=== PATIENT | female | born 1990 | race Caucasian/White ===

== ENCOUNTER 2017-10-17 15:30 | Outpatient (RCR) | payer MEDICAID ==
--- NOTE | 2017-10-06 17:08 | PT INITIAL EVALUATION ---
MEDICAL DIAGNOSIS: Hand Numbness TREATMENT DIAGNOSIS: Hand Numbness, Cervical Dysfunction DATE OF ONSET: 09/05/17 SUBJECTIVE: Pt is a 27 year old female presenting to physical therapy following a 1 month long progressive onset of B UE numbness, tingling and pain. Pt is 35 weeks and is due on November 12, 2017. Pt reports that the numbness started out as neck pain with occasional headaches and progressed initially into the L UE, but is now in both UE affecting digits 1-4. Symptoms were initially only present when sleeping and currently sleeping increases symptoms. Pt rates pain and symptoms currently as a 5/10 with only numbness but occasionally she will have sharp needle pain in the medial upper arms B. Pt denies any neck pain or headaches currently, but occasionally will have pain shooting into L low back with undermined neck movements. Symptoms are decreased with shoulder depression and relaxation, but never goes completely away. REHAB PROBLEM LIST: Increased Pain Decreased ROM Decreased Strength Decreased Function Decreased ADL's Decreased Mobility PREVIOUS MEDICAL HISTORY: See EMR OCCUPATION: Office work at [employer] OBJECTIVE: Posture: Pt has B elevated shoulders L>R with significant forward head and rounded shoulders. ROM: Cervical ROM: flexion: without pain and full, ext: pain in L shoulder and full, L SB: full without pain, R SB: minimal restrictions with L shoulder pain , R rotation: full without pain, L rotation: full with stretch on L shoulder. Shoulder ROM: flexion: full without pain B, abd: tight on L side but full B with significant L shoulder elevation, ER: B full with L side tightness, IR : full B without pain Strength: Pt is unable to form a fist in B hands secondary to stiffness and decreased strength. Palpation: Pt has no tenderness to palpation of cervical spine. Sensation: Pt reports numbness and tingling in digits 1-5 B Special Tests: Archie Cervical Screen: repeated ext: decreased tingling and numbness in R hand with increased music supervisor formation, repeated flexion: no change in numbness with shooting pain into L mid back, retraction: increased pain in neck with radiation to head, L SB: no change in symptoms, R SB: increased tingling in hands. ASSESSMENT: Pt shows signs and symptoms consistent with cervical dysfunction and neurological impingement as described in the impairments above. Physical therapy is indicated to correct these deficits as well as improve pt functional ability to perform ADL's. Short Term Goals In 3 weeks pt will have no symptoms of numbness or tingling in B UE centralizing pain the the cervical spine only for increased function with ADL' s. In 6 weeks pt will report no neck pain or episodes of numbness and tingling in B UE for increased function with ADL's. In 6 weeks pt will have full shoulder ROM without onset of pain for increased function with ADL's. Patient's Goals Decrease numbness in hands. PLAN: Patient to be seen for Manual Therapy/STM/MET Strengthening/condition Ice/Heat Range of Motion Spinal Stabilization Ultrasound Stretching Iontophoresis Neuromuscular Re-ed Closed Chain Program Electrical Stim Posture/Body mechanics Biofeedback Home Exercise Program Mech./Manual Traction Therapeutic Activities 3x/Week for 6 Weeks If you have any questions, comments, or concerns about this report or plan, please contact me at . Thank you, Talita Leung, PT, DPT, CLT LESLI
[~2017-10-17 15:30] MED LIST: IBUP-1455 PO; LOR7.5/325 PO; METO-733 PO; METR-1 PO; NO RTN MEDS
--- NOTE | 2017-10-21 18:26 | PT PLAN OF CARE ---
Physician: Fredy Falk MD Patient is being seen: 2-3x/Week Therapist: Talita Leung, PT, DPT, CLT Medical Diagnosis: Hand Numbness Treatment Diagnosis: Hand Numbness, Cervical Dysfunction Date of Onset: 09/05/17 Date of Initial Evaluation: 10/06/17 Date patient was last seen: 10/17/17 Number of treatments: 2 Number of cancellations/No shows: 2 INTERVENTIONS: Manual Therapy/STM/MET Strengthening/condition Ice/Heat Range of Motion Spinal Stabilization Ultrasound Stretching Iontophoresis Neuromuscular Re-ed Closed Chain Program Electrical Stim Posture/Body mechanics Biofeedback Home Exercise Program Mech./Manual Traction Therapeutic Activities GOALS: In 3 weeks pt will have no symptoms of numbness or tingling in B UE centralizing pain the the cervical spine only for increased function with ADL' s. In Progress In 6 weeks pt will report no neck pain or episodes of numbness and tingling in B UE for increased function with ADL's. In Progress In 6 weeks pt will have full shoulder ROM without onset of pain for increased function with ADL's. In Progress PATIENT'S GOAL: Decrease numbness in hands. Status of Patient's Goals: In Progress Patient Compliance: Fair Prognosis: Good Reasons for discharge from therapy: Sindhu is to discharge from physical therapy at this time secondary to pt inability to transport to treatment secondary to poor road conditions and pt residence in [place], [place]. At the time of discharge pt right UE had decreased numbness at 5/10 full arm. L UE fingers remained at 10/10, with pt reported feeling coming back in the rest of the arm. Pt tolerated exercises well with no increased pain and improved mobility. Pt is to continue PT treatment in [place], [place] for continued progress towards her functional goals as well as continue with her HEP. Posture: Pt has B elevated shoulders L>R with significant forward head and rounded shoulders. ROM: Cervical ROM: flexion: without pain and full, ext: pain in L shoulder and full, L SB: full without pain, R SB: minimal restrictions with L shoulder pain , R rotation: full without pain, L rotation: full with stretch on L shoulder. Shoulder ROM: flexion: full without pain B, abd: tight on L side but full B with significant L shoulder elevation, ER: B full with L side tightness, IR : full B without pain Strength: Pt is unable to form a fist in B hands secondary to stiffness and decreased strength. Palpation: Pt has no tenderness to palpation of cervical spine. Special Tests: Archie Cervical Screen: repeated ext: decreased tingling and numbness in R hand with increased jump roll operator formation, repeated flexion: no change in numbness with shooting pain into L mid back, retraction: increased pain in neck with radiation to head, L SB: no change in symptoms, R SB: increased tingling in hands. If you have any questions or concerns, please feel free to contact me at . Thank you, Talita Leung, PT, DPT, CLT MTDD
[2017-11-09] MEDS ORDERED: CALC-521 PO (22:26)
[2017-11-10] MEDS ORDERED: OXYC-373 PO (22:08)
[2017-11-10] MEDS ORDERED: IBUP800T37 PO (22:08)
== END 2018-01-04 ==
LOC: PT 15:30
PROVIDERS: ATTEND Obstetrics & Gynecology
DX: R20.2 Paresthesia of skin (principal); M99.01 Segmental and somatic dysfunction of cervical region; Z33.1 Pregnant state, incidental
CPT/HCPCS: 97162

== ENCOUNTER 2017-11-09 18:45 | Inpatient (IN) | payer MEDICAID ==
[~2017-11-09] VITALS: Ht 157.5 cm; Wt 132.9 kg
[2017-11-09] MEDS ORDERED: OXYTOCIN 30 UNIT/NS 500 ML 500 ML IV PRN (18:58)
[2017-11-09] MEDS ORDERED: LR(*) 1000 ML BAG 1,000 ML IV PRN (18:58)
[2017-11-09] MEDS ORDERED: FAMOTIDINE(*) 20MG/50ML PREMIX 50 ML IVPB PRN (18:58)
[2017-11-09] MEDS ORDERED: ceFAZolin(*) 2GM/D5W 50ML 50 ML IVPB PRN (18:58)
[2017-11-09] MEDS ORDERED: DINOPROSTONE 10 MG INSERT PV ONE (19:00)
[2017-11-09] MEDS ORDERED: FLUSH 10 ML SYR IVP PRN (19:00)
[2017-11-09] MEDS ORDERED: LIDOCAINE 1% LOCAL 300 MG/30ML INJ PRN (19:00)
[2017-11-09] MEDS ORDERED: MISOPROSTOL 25 MCG CAP PV PRN (19:00)
[2017-11-09] MEDS ORDERED: LIDOCAINE/SOD BICARB 8.4% SYR SC PRN (19:00)
[2017-11-09] MEDS ORDERED: fentaNYL CITR 100 MCG/2 ML AMP IVP PRN (19:00)
[2017-11-09] MEDS ORDERED: METOCLOPRAMIDE 10 MG/2 ML SDV IVP PRN (19:00)
[2017-11-09] MEDS ORDERED: ZOLPIDEM TARTRATE 5 MG TAB PO PRN (19:00)
[2017-11-09] MEDS ORDERED: TERBUTALINE SULF 1 MG/ML VIAL SUBQ PRN (19:00)
[2017-11-09 21:00] LABS: PLATELET COUNT, AUTOMATED 195 K/uL (150-450)
[2017-11-09 22:00] VITALS: BP 134/86; Ht 157.5 cm; Wt 132.9 kg
[2017-11-09] MEDS ORDERED: FAMOTIDINE(*) 20MG/50ML PREMIX 50 ML IVPB ONE (22:00)
[2017-11-09] MEDS ORDERED: CALCIUM CARBONATE 500 MG CHEW PO PRN (22:00)
[2017-11-09] MEDS ORDERED: CALC-521 PO (22:26)
[2017-11-10] VITALS (14 sets, daily range): BP systolic 87–114; BP diastolic 41–62
[2017-11-10] MEDS ORDERED: ACETAMINOPHEN 500 MG TAB PO PRN ×2 (00:55→22:30)
[2017-11-10] MEDS: ONDANSETRON 4 MG/2 ML VIAL IVP PRN ×2 (06:15→17:24)
[2017-11-10] MEDS ORDERED: PENICILLIN G 5 MILLUN/100 ML 100 ML IVPB ONE (07:05)
--- NOTE | 2017-11-10 07:19 | History & Physical ---
History of Present Illness Age of Patient: 27 : 1 Para or TPAL: 0 EDC per LMP: Nov 12, 2017 Estimated Gestational Age: 39.5 Chief Complaint Induction of Labor History of Present Illness Pt is a 27 y/o @ 39-5/7 weeks gestation who presents to L&D for a scheduled IOL. Pt denies any complaints. Good movement. No vaginal bleeding or loss of amniotic fluid. Feels the occasional cramp. History Patient's Blood Type: O Positive Rubella Status: Immune Group B Strep Screen: Positive Obstetrical History: Primigravid Past Medical History: PCOS Appendectomy 2008 Allergies: Coded Allergies: No Known Allergies (Verified Allergy, Mild, 02/22/09) Social History: +tobacco use, negative alcohol and recreational drug use. Med Rec Home Meds Reported Medications Calcium Carbonate (TUMS) 300 Mg Tab.chew, 300 MG PO, TAB.CHEW 11/09/17 Discontinued Reported Medications Acetaminophen/Hydrocodone (Lortab 7.5/325 Mg) 7.5 Mg/325 Mg Tab, 1 TAB PO Q3-4H Y, #20 1 Refill TAKE ONE TABLET EVERY 3-4 HOURS AND PRN NEEDED FOR PAIN 02/23/09 Metoclopramide Hcl (Reglan) 5 Mg Tablet, 5 MG PO TIDAC, #10 0 Refills tAKE ONE TABLET THREE TIMES A DAY BEFORE MEALS 02/23/09 Ibuprofen (Ibuprofen M) 200 Mg Tablet, 200 MG PO TID for 5 Days, 0 Refills TAKE TWO TABLETS WITH FOOD THREE TIMES A DAY FOR FIVE DAYS 02/23/09 [No Rtn Meds] No Conflict Check, 0 Refills 02/22/09 Discontinued Scripts Metronidazole (FLAGYL) 500 Mg Tablet, 500 MG PO BID for 7 Days, #14 TAB Prov:LARRY CASTILLO 05/16/17 Review of Systems All Systems Reviewed/Normal: Yes, Except as Noted Constitutional: No Fever, No Weight Loss, No Weight Gain, No Chills, No Night Sweats, No Other Neurological: No Syncope, No Confusion, No Weakness, No Dizziness, No Slurred Speech, No Other Eyes: No Vision Change, No Loss of Vision, No Photophobia, No Other ENT: No Hearing Loss, No Sinus Congestion, No Sore Throat, No Ear Ache, No Tinnitus, No Other Cardiovascular: No Chest Pain, No Palpitations, No Orthostatic Hypotension, No Other Respiratory: No Shortness of Breath, No Cough, No Wheezing, No Other Gastrointestinal: No Nausea, No Vomiting, No Diarrhea, No Dysphagia, No Constipation, No Early Satiety, No Hematemesis, No Hematochezia, No Melena, No Abdominal Pain, No Other Genitourinary: No Dysuria, No Hematuria, No Urinary Incontinence, No Other Musculoskeletal: No Pain, No Sprain, No Strain, No Impaired Mobility, No Other Psychiatric: No Depression, No Anxiety, No Other Exam General Exam Vital Signs Vital Signs Date Time Temp Pulse Resp B/P (MAP) Pulse Ox O2 Delivery O2 Flow Rate FiO2 11/09/17 22:00 98.4 106 18 134/86 (102) 94 Room Air General Apperance: Alert/Awake/No Acute Distress Neuro: No Gross deficits Eyes: Normal Extraocular Movement & Vison, PERRLA ENT: Normal Cardiovascular: Regular Rate and Rhythm Respiratory: No Respiratory Distress, Clear to Auscultation Abdomen: Soft, Non-Tender, Non-Distended, Gravid - Non-Tender : Normal Musculoskeletal: No Weakness/Pain Extremities: No Cyanosis,Clubbing or Edema Integumentary: Skin Intact without Lesions or Rash Psychological: Alert & Oriented X3, Appropriate Mood & Affect Cervical Dialation: 3 Cervical Effacement (%): 50 Cervical Consistency: Moderate Cervical Position: Mid Station: -2 Presentation: Vertex Uterine Contractions(Q min): 0 Fetus Feeling Movement?: Yes Heart Tones: 130 Heart Tone Variabilty: Moderate FHT Accelerations: Present FHT Decelerations: None FHT Category: I Medical Decision Making Data Points Result Diagram: 11/09/17203811/09/172038 Pre-Admit Course Medical Record Review: Yes VTE Prophylasis: Adult Deep Vein Thrombosis/Pulmonary: No Assessment and Plan COMPLAINT INSPECTOR Assessment: Stable COMPLAINT INSPECTOR Plan: Routine Labor/Induct Care Problems: (1) GBS (group B Streptococcus carrier), +RV culture, currently Assessment & Plan: Start PCN this AM and continue through delivery. (2) Elective induction of labor planned Assessment & Plan: Received Cervidil overnight. Will start Oxytocin and perform amniotomy after 1st dose of antibiotics have been infused. (3) 39 weeks gestation of (4) Obesity affecting in third trimester AURORA KAM DO Nov 10, 2017 07:19
[2017-11-10] MEDS ORDERED: LIDO/EPI 2% MPF 1:200,000 20ML EPI PRN (07:55)
[2017-11-10] MEDS ORDERED: BUPIVACAINE 0.25% MPF INJ EPI PRN (07:55)
[2017-11-10] MEDS ORDERED: ePHEDrine 25 MG/5 ML DISP.SYR IVP PRN (07:55)
[2017-11-10] MEDS ORDERED: fentaNYL CITR 100 MCG/2 ML AMP IT PRN (07:55)
[2017-11-10] MEDS ORDERED: BUPIVACAINE 0.5% INJ 30ML VIAL EPI PRN (07:55)
[2017-11-10] MEDS ORDERED: LIDOCAINE/PF 2% 200MG/10ML AMP 200 MG/10 ML AMPUL EPI PRN (07:55)
[2017-11-10] MEDS ORDERED: FENTANYL/ROPIVACAINE 100 ML BAG EPI PRN (07:55)
[2017-11-10] MEDS ORDERED: EPIDURAL KEYS XX PRN (08:00)
[2017-11-10] MEDS ORDERED: LR(*) 1000 ML BAG 1,000 ML IV PRN (08:27)
[2017-11-10] MEDS ORDERED: OXYTOCIN 30 UNIT/NS 500 ML 500 ML IV PRN ×2 (08:27→22:03)
[2017-11-10] MEDS ORDERED: DLR(*) 1000 ML BAG 1,000 ML IV SCH (08:27)
[2017-11-10] MEDS ORDERED: TERBUTALINE SULF 1 MG/ML VIAL SUBQ PRN (08:30)
--- NOTE | 2017-11-10 08:35 | Labor Progress Note ---
Labor Subjective Progress Notes Subjective feeling cramping Vaginal Discharge/Fluid: No Bloody Show, No Clear Fluid Labor Pain: Moderate Labor Objective Vital Signs Vital Signs Date Time Temp Pulse Resp B/P (MAP) Pulse Ox O2 Delivery O2 Flow Rate FiO2 11/09/17 22:00 98.4 106 18 134/86 (102) 94 Room Air Cervical Dialation: 3 (RN) Cervical Effacement (%): 80 Cervical Consistency: Soft Station: -2 Presentation: Vertex Uterine Contractions(Q min): 0 (NOT ICKING UP) Fetus Heart Tones: 140 Heart Tone Variabilty: Moderate FHT Category: I Other Result Diagram: 11/09/17203811/09/172038 Assessment and Plan Problems: (1) GBS (group B Streptococcus carrier), +RV culture, currently (2) Elective induction of labor planned Assessment & Plan: minimal change with cervadil, softened per report. start pitocin and monitor for change (3) 39 weeks gestation of (4) Obesity affecting in third trimester DAMASO BARRIENTOS MD Nov 10, 2017 08:34
--- NOTE | 2017-11-10 10:03 | Labor Progress Note ---
Labor Subjective Progress Notes Subjective PATIENT SAT UP FOR EPIDURAL AND STAFF REPORTED AUDIBLE DECELERATION IN HEART TONE, POSITION CHANGE OXYGEN AND FLUIDS FOR RESUSCITATION. DISCUSSED POSSIBLE NEED FOR DELIVERY BY C SECTION AND RISKS INVOLVED IF BABY UNIMPROVED Vaginal Discharge/Fluid: No Bloody Show Labor Pain: Mild Labor Objective Vital Signs Vital Signs Date Time Temp Pulse Resp B/P (MAP) Pulse Ox O2 Delivery O2 Flow Rate FiO2 11/09/17 22:00 98.4 106 18 134/86 (102) 94 Room Air Cervical Dialation: 3 Cervical Effacement (%): 90 Cervical Consistency: Soft Cervical Position: Anterior Station: -1 Presentation: Vertex Fetus Heart Tones: 180 Heart Tone Variabilty: Moderate FHT Category: II Other Result Diagram: 11/09/17203811/09/172038 Assessment and Plan Problems: (1) GBS (group B Streptococcus carrier), +RV culture, currently (2) Elective induction of labor planned (3) 39 weeks gestation of (4) Obesity affecting in third trimester (5) Active labor at term Assessment & Plan: CONCERN WITH HEART TONES, WILL GIVE 20 MINUTES TO RESOLVE OR IMPROVE AND REASSESS NEED FRO DELIVERY DAMASO BARRIENTOS MD Nov 10, 2017 10:03
--- NOTE | 2017-11-10 10:58 | Labor Progress Note ---
Labor Subjective Progress Notes Subjective PITOCIN HAS BEEN OFF, NOT FEELING REGULAR CONTRACTIONS Vaginal Discharge/Fluid: No Bloody Show Labor Pain: Mild Labor Objective Vital Signs Vital Signs Date Time Temp Pulse Resp B/P (MAP) Pulse Ox O2 Delivery O2 Flow Rate FiO2 11/09/17 22:00 98.4 106 18 134/86 (102) 94 Room Air Fetus Heart Tones: 150 Heart Tone Variabilty: Moderate FHT Accelerations: 15X15 FHT Category: I Other Result Diagram: 11/09/17203811/09/172038 Assessment and Plan Problems: (1) GBS (group B Streptococcus carrier), +RV culture, currently (2) Elective induction of labor planned (3) 39 weeks gestation of (4) Obesity affecting in third trimester (5) Active labor at term Assessment & Plan: WILL SEE IF ABLE TO TOLERATE CONTRACTIONS, IF ABLE WILL CONSIDER ANOTHER ATTEMPT AT EPIDURAL ANESTHESIA LIKELY IN OR IN CASE BRADYCARDIA RETURNS AND NEED FOR EMERGENT DELIVERY. DAMASO BARRIENTOS MD Nov 10, 2017 10:58
[2017-11-10] MEDS ORDERED: CITRIC ACID/SOD CITRATE 30 ML PO PRN (11:25)
--- NOTE | 2017-11-10 12:08 | Labor Progress Note ---
Labor Subjective Progress Notes Subjective FEELING CONTRACTIONS Vaginal Discharge/Fluid: No Bloody Show Labor Pain: Moderate Labor Objective Vital Signs Vital Signs Date Time Temp Pulse Resp B/P (MAP) Pulse Ox O2 Delivery O2 Flow Rate FiO2 11/09/17 22:00 98.4 106 18 134/86 (102) 94 Room Air Cervical Dialation: 3 Cervical Effacement (%): 90 Cervical Consistency: Soft Station: -1 Presentation: Vertex Uterine Contractions(Q min): 3 Uterine Contraction Strength: Moderate Fetus Heart Tones: 140 Heart Tone Variabilty: Moderate FHT Accelerations: 15X15 FHT Category: I Other Result Diagram: 11/09/17203811/09/172038 Assessment and Plan Problems: (1) GBS (group B Streptococcus carrier), +RV culture, currently (2) Elective induction of labor planned (3) 39 weeks gestation of (4) Obesity affecting in third trimester (5) Active labor at term Assessment & Plan: WILL TRY TO SEE IF ABLE TO GET EPIDURAL AND THEN AROM IF TOLERATES DAMASO BARRIENTOS MD Nov 10, 2017 12:08
[2017-11-10] MEDS: PENICILLIN G 2.5 MILLUN/100 ML 100 ML IVPB SCH ×2 (12:09→16:05)
--- NOTE | 2017-11-10 12:33 | Labor Progress Note ---
Labor Subjective Progress Notes Subjective UNABLE TO MONITOR TRACING WHILE SITTING UP FOR EPIDURAL Vaginal Discharge/Fluid: Dark Green Fluid Labor Pain: Moderate Labor Objective Vital Signs Vital Signs Date Time Temp Pulse Resp B/P (MAP) Pulse Ox O2 Delivery O2 Flow Rate FiO2 11/09/17 22:00 98.4 106 18 134/86 (102) 94 Room Air Cervical Dialation: 3 Cervical Effacement (%): 100 Cervical Consistency: Soft Cervical Position: Anterior Station: 0 Presentation: Vertex Uterine Contractions(Q min): 3 Uterine Contraction Strength: Strong Fetus Heart Tones: 140 Heart Tone Variabilty: Moderate FHT Accelerations: 15X15 FHT Category: I Other Result Diagram: 11/09/17203811/09/172038 Assessment and Plan Problems: (1) GBS (group B Streptococcus carrier), +RV culture, currently (2) Elective induction of labor planned (3) 39 weeks gestation of (4) Obesity affecting in third trimester (5) Active labor at term Assessment & Plan: AROM MECONIUM STAINED FLUID, FSE AND IUPC PLACED WILL TRY TO SEE IF TOLERATES SITTING FOR EPIDURAL AND MONITOR FOR CERVICAL CHANGE DAMASO BARRIENTOS MD Nov 10, 2017 12:33
[2017-11-10] MEDS ORDERED: NS(*) 0.9% 1000 ML BAG 1,000 ML ONE (12:40)
[2017-11-10] MEDS: NS(*) 0.9% 1000 ML BAG 1,000 ML PV PRN ×3 (13:10→18:08)
--- NOTE | 2017-11-10 13:13 | Labor Progress Note ---
Labor Subjective Progress Notes Subjective RECEIVED EPIDURAL Vaginal Discharge/Fluid: Green Tinged Fluid Labor Pain: Mild Labor Objective Vital Signs Vital Signs Date Time Temp Pulse Resp B/P (MAP) Pulse Ox O2 Delivery O2 Flow Rate FiO2 11/09/17 22:00 98.4 106 18 134/86 (102) 94 Room Air Cervical Dialation: 4 Cervical Effacement (%): 100 Station: 0 Presentation: Vertex Uterine Contractions(Q min): 4 Uterine Contraction Strength: Strong Fetus Heart Tones: 140 Heart Tone Variabilty: Moderate FHT Accelerations: 15X15 FHT Decelerations: Early FHT Category: II Other Result Diagram: 11/09/17203811/09/172038 Assessment and Plan Problems: (1) GBS (group B Streptococcus carrier), +RV culture, currently (2) Elective induction of labor planned (3) 39 weeks gestation of (4) Obesity affecting in third trimester (5) Active labor at term Assessment & Plan: IUPC REPLACED WILL AMNIOINFUSE FOR VARIABLE DECEL, LOST LARGE AMOUNT OF FLUID. WILL MONITOR FOR CERVICAL CHANGE DAMASO BARRIENTOS MD Nov 10, 2017 13:13
--- NOTE | 2017-11-10 15:50 | Anesthesia OB Pre-Anes Eval ---
History of Present Illness Anesthesia Start Date: Nov 10, 2017 Anesthesia Start Time: 09:20 OB Anesthesia Diagnosis: induction - elective Current Complication: obesity EDC: Nov 12, 2017 : 1 Para: 0 Result Diagram: 11/09/17203811/09/172038 Height (Inches): 62.00 Weight (Pounds): 293 BMI Calculated: 53.58 Past Medical History Medical History: obesity Surgical History: appendectomy (2008) Previous Anesthesia: general Attended Childbirth Classes?: No Hx Anesthesia Reactions: No Hx Family Anesthesia Reaction: No Current Medications: pitocin Home Meds Reported Medications Calcium Carbonate (TUMS) 300 Mg Tab.chew, 300 MG PO, TAB.CHEW 11/09/17 Discontinued Reported Medications Acetaminophen/Hydrocodone (Lortab 7.5/325 Mg) 7.5 Mg/325 Mg Tab, 1 TAB PO Q3-4H Y, #20 1 Refill TAKE ONE TABLET EVERY 3-4 HOURS AND PRN NEEDED FOR PAIN 02/23/09 Metoclopramide Hcl (Reglan) 5 Mg Tablet, 5 MG PO TIDAC, #10 0 Refills tAKE ONE TABLET THREE TIMES A DAY BEFORE MEALS 02/23/09 Ibuprofen (Ibuprofen M) 200 Mg Tablet, 200 MG PO TID for 5 Days, 0 Refills TAKE TWO TABLETS WITH FOOD THREE TIMES A DAY FOR FIVE DAYS 02/23/09 [No Rtn Meds] No Conflict Check, 0 Refills 02/22/09 Discontinued Scripts Metronidazole (FLAGYL) 500 Mg Tablet, 500 MG PO BID for 7 Days, #14 TAB Prov:JONATHANLARRY POWER BALLAST MACHINE OPERATOR 05/16/17 Allergies: Coded Allergies: No Known Allergies (Verified Allergy, Mild, 02/22/09) Anesthesia OB ROS Neurological: No migraines/headaches, No seizures, No neuropathy ENT: Denies Tooth caps, Denies Loose teeth, Denies Chipped teeth, Denies Dentures, Denies Bridges, Denies Retainers, Denies Veneers, Denies Implants, Denies Tongue ring, Other Pulmonary: No asthma, No smoker (pks/day/yrs) Airway Class: lll Cardiovascular ROS: edema (hands and feet) GI ROS: clear liquids Last Solids Date: Nov 09, 2017 Last Solids Time: 18:30 ROS: No Herpes, No STD(s), No Liver Disease, No Renal Disease Endocrine ROS: No diabetes, No gestational diabetes, No thyroid disorder Musculoskeletal ROS: No low back pain, No low back injury, No scoliosis, other (Mobility slow due to size) ASA Classification: 3, E Assessment and Plan Assessment Past Medical, Surgical, Family and Obstetric Histories reviewed. Please see ACOG chart. Discussed with pt., plans and procedure for epidural or CSE for pain management during labor and delivery. Thoroughly explained potential for C/Section and need for GA with ETT. Risks of each including possibility of unable to place block (due to her size), PDPHA and risk of aspiration/airway difficulties if GA required. Questions invited, none asked. RN attempting to Locate FHT with pt. sitting on with legs over side of bed. FHT appeared to be low, pt's position changed to left lateral with elevated HOB 30 degrees. FHT then found to be 180-190s. Call to Dr. Falk and plan to place epidural stopped until FHTs improve. RYANN TINAJERO CRNA Nov 10, 2017 15:50
--- NOTE | 2017-11-10 16:14 | Procedure Note ---
Anesthetic Placement Note Anesthesia Plan: CSE Permit for Anesthesia Signed: Yes Anesthesia Technique: Patient Sitting Anesthesia Prep: Chlorhexidine Interspace: L 3-4 Local Anesthetic: 1% Lidocaine Amount Local - cc's: 3 Anesthesia Needle: 17g Touhy/Schliff Anesthesia Attempts: 2 Loss of Resistance: Air Depth of LOS (cm): 8 Epidural Needle Placement: No CSF, No Blood, No Parasthesia Intrathecal Needle: 27 Gauge Pencan Cerebral Spinal Fluid: Yes, Clear Catheter Insertion (cm): 12 Catheter Type: Simons - Spring Wound Epidural Dressing: Tegaderm, Tape, Adhesive [place] Anesthesia Tray: Lot Number ([id number]), Expiration Date (2018-11-06), Reference Number ([id number]) Comment: Pt. assisted to slowly sit, then transferring legs over side of bed, and closely observing FHTs. Attempting to assist pt. to best possible position for epidural. IV Fentenyl 50 mcgs given to help pt. in tolerating contractions and maintaining position. Unable to feel any hip or spinous processes. Chlorhexidine prep x2. Local given. Unable to feel any bone with local needle. #17 g Touhy at ???L3-4 and unable to locate epidural space. Pt. repositioned with legs up on stool. Local repeated one level above, ??L2-3. Fair YEYO. Redirecting needle until epidural space located. Good CSF with intrathecal. Catheter threaded easily. Pt. changed to left lateral and taped securely. Dr. Falk present. Anesthesia Medications: Intrathecal Dose: mcg Fentanyl (5), mg Marcaine MPF (1.75), Time (1254) Epidural Test Dose: 1.5 Lido/Epi (1:200,000), Dose - mL (2), Negative Epidural Loading Dose: 0.2% Ropivicaine, With Fentanyl 2mcg/ml, Dose - ml (4), Time (1351) Epidural Infusion: 0.2% Ropivicaine, With Fentanyl 2mcg/ml, Start Time: (1352) Epidural Pump Setting: Bolus Dose - mL (4), Lockout - Minutes (20), Maintenance Rate - mL/hr (4), Maximum per Hour - mL (16) Complications: None Comment: Pt. became comfortable within 5 minutes of intrathecal. Mild itching noted. RYANN TINAJERO CRNA Nov 10, 2017 16:14
[2017-11-10] MEDS ORDERED: cefOXitin/DEX(*) 2GM/50ML PREM 50 ML IVPB PRN (16:20)
--- NOTE | 2017-11-10 16:22 | Anesthesia Progress Note ---
Progress/Maintenance Anesthesia Note Date: Nov 10, 2017 Anesthesia Note Time: 16:00 Pain Intensity: 1 Pump: On Pump Rate (ML/HR): 4 Sensory Level: T-12 Motor Level: Other (slow to love legs, but an move with requested) Dilatation: 5 Position: Left, Tilt Assessment and Plan Assessment Pt states she feels only "slight tightening" during contractions. Sleeping at intervals. RYANN TINAJERO CRNA Nov 10, 2017 16:22
--- NOTE | 2017-11-10 17:33 | Labor Progress Note ---
Labor Subjective Progress Notes Subjective comfortable with epidural Labor Pain: Comfortable Labor Objective Vital Signs Vital Signs Date Time Temp Pulse Resp B/P (MAP) Pulse Ox O2 Delivery O2 Flow Rate FiO2 11/09/17 22:00 98.4 106 18 134/86 (102) 94 Room Air Cervical Dialation: 6 Cervical Effacement (%): 100 Cervical Consistency: Soft Cervical Position: Anterior Station: 0 Presentation: Vertex Uterine Contractions(Q min): 4 Uterine Contraction Strength: Strong Fetus Heart Tones: 130 Heart Tone Variabilty: Moderate FHT Accelerations: 15X15 FHT Category: I Other Result Diagram: 11/09/17203811/09/172038 Assessment and Plan Problems: (1) GBS (group B Streptococcus carrier), +RV culture, currently (2) Elective induction of labor planned (3) 39 weeks gestation of (4) Obesity affecting in third trimester (5) Active labor at term Assessment & Plan: will continue to observe for cervical change. Contractions adequate DAMASO BARRIENTOS MD Nov 10, 2017 17:33
--- NOTE | 2017-11-10 19:03 | Anesthesia Progress Note ---
Progress/Maintenance Anesthesia Note Date: Nov 10, 2017 Anesthesia Note Time: 18:45 Pain Intensity: 4 Pump: On Pump Rate (ML/HR): 4 Sensory Level: T-12 Motor Level: Other (Able to move both but slowly) Dilatation: 7 Position: Left, Tilt Drug Bolus: 0.5% Marcaine (4 ml), Other (Fentenyl 35 mcgs) Assessment and Plan Assessment Pt. states she is having move abdominal pain with contractions. Bolus per pump at 1800 which pt. states did not help any. Manual bolus given and relief noted within 5-10 minutes. Pt. now does not notice contractions. RYANN TINAJERO CRNA Nov 10, 2017 19:03
[2017-11-10] MEDS ORDERED: NS(*) 0.9% 1000 ML BAG 1,000 ML PV PRN (19:22)
--- NOTE | 2017-11-10 20:18 | Labor Progress Note ---
Labor Subjective Progress Notes Subjective comfortable with epidural Labor Pain: Comfortable Labor Objective Vital Signs Vital Signs Date Time Temp Pulse Resp B/P (MAP) Pulse Ox O2 Delivery O2 Flow Rate FiO2 11/09/17 22:00 98.4 106 18 134/86 (102) 94 Room Air Cervical Dialation: 6 Cervical Effacement (%): 100 Station: 0 Presentation: Vertex Uterine Contractions(Q min): 3 Uterine Contraction Strength: Strong Fetus Heart Tones: 140 Heart Tone Variabilty: Moderate FHT Category: II Other Result Diagram: 11/09/17203811/09/172038 Assessment and Plan Problems: (1) GBS (group B Streptococcus carrier), +RV culture, currently (2) Elective induction of labor planned (3) 39 weeks gestation of (4) Obesity affecting in third trimester (5) Active labor at term Assessment & Plan: no progress despite adequate uterine contractions, will proceed with delivery by c section DAMASO BARRIENTOS MD Nov 10, 2017 20:18
[2017-11-10] MEDS ORDERED: OXYTOCIN 10 UNIT/ML SDV ONE ×2 (21:02→21:45)
[2017-11-10] MEDS ORDERED: ONDANSETRON 4 MG/2 ML VIAL ONE (21:02)
[2017-11-10] MEDS ORDERED: KETOROLAC 30 MG/ML VIAL ONE (21:02)
[2017-11-10] MEDS ORDERED: MORPHINE PF 5 MG/10 ML AMP ONE (21:02)
[2017-11-10] MEDS ORDERED: LIDO/EPI 2% MPF 1:200,000 20ML ONE (21:02)
[2017-11-10] MEDS ORDERED: PHENYLEPHRINE/NS/PF 0.4MG/10ML ONE ×2 (21:02→21:38)
[2017-11-10] MEDS ORDERED: fentaNYL CITR 100 MCG/2 ML AMP ONE (21:45)
[2017-11-10] MEDS ORDERED: FAMOTIDINE(*) 20MG/50ML PREMIX 50 ML IVPB PRN (22:03)
--- NOTE | 2017-11-10 22:03 | Post Operative Note ---
Operative Note - [facility]IE[facility] Operative Day Date: Nov 10, 2017 Time: 21:10 Physicians Surgeon: FLOYD Toy Designer: NEGIN Anesthesia: TANVI Diagnosis Pre-Op Diagnosis: IUP AT 39 5/7 MORBID OBESITY FTP Post-Op Diagnosis: SAME Procedure Findings: MALE APGARS 8, 9 WEGHT 4060 GMS 8# 15 OZ NORMAL UTERUS OVARIES AND TUBES 189171 Procedure(s): PLTCS Complications: 0 Fluids Fluids: 1500 CC LR IV Estimated Blood Loss: 750 CC Dictated Date OP Note Dictated: Nov 10, 2017 Time OP Note Dictated: 22:10 Copies to: DAMASO BARRIENTOS MD, JOHN MD Nov 10, 2017 22:03
[2017-11-10] MEDS ORDERED: ONDANSETRON 4 MG/2 ML VIAL IV PRN (22:05)
[2017-11-10] MEDS ORDERED: METOCLOPRAMIDE 10 MG/2 ML SDV IV PRN (22:05)
[2017-11-10] MEDS ORDERED: FLUSH 10 ML SYR IVP PRN (22:05)
[2017-11-10] MEDS ORDERED: LANOLIN OINT 7 GM TUBE TP PRN (22:05)
[2017-11-10] MEDS ORDERED: PROMETHAZINE 25 MG/ML 1 ML AMP IVP PRN (22:05)
[2017-11-10] MEDS ORDERED: IBUP800T37 PO (22:08)
[2017-11-10] MEDS ORDERED: OXYC-373 PO (22:08)
[2017-11-10] MEDS ORDERED: METHYLERGONOVINE MAL 0.2MG/ML ONE (22:09)
--- NOTE | 2017-11-10 22:11 | OB/GYN Discharge Summary ---
Discharge Summary Reason for Hosp/Final Diag: (1) GBS (group B Streptococcus carrier), +RV culture, currently Status: Resolved (2) Elective induction of labor planned Status: Resolved (3) 39 weeks gestation of Status: Resolved (4) Obesity affecting in third trimester Status: Resolved (5) Active labor at term Status: Resolved (6) care following delivery Hospital Course & Plan: PLTCS, on day 3, Pain controlled, Tolerating diet and activity. Baby . Normal lochia. Lates Vital Signs Vital Signs Date Time Temp Pulse Resp B/P (MAP) Pulse Ox O2 Delivery O2 Flow Rate FiO2 11/09/17 22:00 98.4 106 18 134/86 (102) 94 Room Air Weight (Pounds): 293 Result Diagram: 11/09/17203811/09/172038 Condition: Improved Discharge: Home, Self Intermediate Meds Active Scripts Oxycodone Hcl/Acetaminophen (OXYCODONE-ACETAMINOPHEN 5-325) 1 Each Tablet, 1-2 EACH PO Q4H Y for PAIN, #30 TAB 0 Refills TAKE 1-2 TABLET NEEDED FOR PAIN - NO CLOSER THAN EVERY 4 HOURS. Prov:DAMASO FALK MD 11/10/17 Ibuprofen (IBUPROFEN) 800 Mg Tablet, 1 TAB PO Q8H, #30 TAB 0 Refills Take with food every 8 hours. Prov:DAMASO FALK MD 11/10/17 Reported Medications Calcium Carbonate (TUMS) 300 Mg Tab.chew, 300 MG PO, TAB.CHEW 11/09/17 Discontinued Reported Medications Acetaminophen/Hydrocodone (Lortab 7.5/325 Mg) 7.5 Mg/325 Mg Tab, 1 TAB PO Q3-4H Y, #20 1 Refill TAKE ONE TABLET EVERY 3-4 HOURS AND PRN NEEDED FOR PAIN 02/23/09 Metoclopramide Hcl (Reglan) 5 Mg Tablet, 5 MG PO TIDAC, #10 0 Refills tAKE ONE TABLET THREE TIMES A DAY BEFORE MEALS 02/23/09 Ibuprofen (Ibuprofen M) 200 Mg Tablet, 200 MG PO TID for 5 Days, 0 Refills TAKE TWO TABLETS WITH FOOD THREE TIMES A DAY FOR FIVE DAYS 02/23/09 [No Rtn Meds] No Conflict Check, 0 Refills 02/22/09 Discontinued Scripts Metronidazole (FLAGYL) 500 Mg Tablet, 500 MG PO BID for 7 Days, #14 TAB Prov:LARRY CASTILLO ILIANA 05/16/17 Follow up with: Dr. Falk [phone] Follow up in: 6 wks PP or PO, 2 wks PO Discharge Diet: As Tolerates Discharge Activity: Pelvic Rest Copies to: DAMASO FALK MD, JOHN MD Nov 10, 2017 22:11
--- NOTE | 2017-11-10 22:41 | Anesthesia Progress Note ---
Progress/Maintenance Anesthesia Note Date: Nov 10, 2017 Anesthesia Note Time: 20:20 Pain Intensity: 0 Pump: Off Dilatation: 6 Assessment and Plan Assessment Plans changing to Level 2 C/Section. 2% Lidocaine with Epi given at 5 ml increments. To OR with total of 15 ml and level of T-6 RYANN TINAJERO CRNA Nov 10, 2017 22:41
--- NOTE | 2017-11-10 22:43 | Anesthesia Progress Note ---
Progress/Maintenance Anesthesia Note Date: Nov 10, 2017 Anesthesia Note Time: 22:15 Pain Intensity: 0 Motor Level: Other (moving feet) Assessment and Plan Assessment Pt. stable in PACU. Epidural catheter to remain in til am. Empty 1ml syringe attached and taped to abdomen. RNs aware of leaving catheter in place. Anesthesia Stop Day: Nov 10, 2017 Anesthesia Stop Time: 22:15 RYANN TINAJERO CRNA Nov 10, 2017 22:43
[2017-11-10] MEDS ORDERED: NALBUPHINE HCL 10 MG/ML AMP IV PRN (22:45)
[2017-11-10] MEDS ORDERED: diphenhydrAMINE 25 MG CAP PO PRN (22:45)
[2017-11-10] MEDS ORDERED: NALOXONE HCL 0.4 MG/ML VIAL IV PRN (22:45)
[2017-11-10] MEDS ORDERED: LR ONE (23:06)
[2017-11-11] VITALS (15 sets, daily range): BP systolic 78–113; BP diastolic 33–65
[2017-11-11] MEDS ORDERED: KETOROLAC 30 MG/ML VIAL IVP SCH
[2017-11-11] MEDS: cefOXitin/DEX(*) 1GM/50ML PREM 50 ML IVPB SCH ×4 (00:38→18:16)
[2017-11-11] MEDS: DLR(*) 1000 ML BAG 1,000 ML IV PRN (01:41)
[2017-11-11] MEDS: KETOROLAC 30 MG/ML VIAL IVP SCH ×3 (02:38→14:41)
[2017-11-11] MEDS ORDERED: PENICILLIN G 2.5 MILLUN/100 ML 100 ML IVPB SCH (03:30)
--- NOTE | 2017-11-11 04:08 | BRAGG C-SECTION ---
EVENT DATE: November 10, 2017 SURGEON: Fredy Falk MD ANESTHESIOLOGIST: Sakshi Zayas CRNA ANESTHESIA: Intrathecal MOTOR RUNNER: Reg Esquivel DO PREOPERATIVE DIAGNOSIS 1. Intrauterine at 39 and 5/7 weeks. 2. Morbid obesity. 3. Failure to progress. POSTOPERATIVE DIAGNOSIS 1. Intrauterine at 39 and 5/7 weeks. 2. Morbid obesity. 3. Failure to progress. PROCEDURE PERFORMED Primary low transverse section. COMPLICATIONS None. FLUIDS 1500 mL of lactated ringers IV. ESTIMATED BLOOD LOSS 750 mL. INDICATIONS The patient is 27-year-old female who was admitted for elective induction. She was given Cervidil and made minimal progress overnight. She was 3 cm. Pitocin was initiated, and cervix was -2 station. She desired an epidural. On the first attempt at an epidural when sitting up, heart tones dropped to 30 audibly per nurse's report. She was laid back down and position was changed. She was given oxygen and fluids, and heart tones were in the 180's to 190' s, but then resolved. After 30 to 45 minutes, Pitocin was restarted, and fetus was tolerating the contractions. At this point, an epidural was then placed by Sakshi Zayas CRNA, which was effective. Patient had been ruptured and noted to have meconium-stained fluid. An intrauterine pressure catheter and scalp electrode were placed. The scalp electrode was used for monitoring during the epidural.placement. Pitocin was increased to achieve an adequate labor pattern. Patient progressed to 6 cm, however, over 3 hours made no change in station or dilation, and after discussion of risks and alternatives , the patient agreed to proceed with primary C section. FINDINGS Male infant with Apgars 8 at one minute and 9 at five minutes. Weight was 4060 grams, or 8 pounds, 15 ounces. She had a normal-appearing uterus, ovaries and tubes. PROCEDURE After informed consent was obtained, the patient was taken to the operating room. The Garcia catheter had been placed in the labor and delivery suite. Intrathecal had been dosed appropriately. She was prepped and draped for a C section. A Pfannenstiel skin incision was made, carried through to the underlying layer of fascia with the Bovie. The skin incision had been made with a scalpel. The fascia was nicked in the midline and extended laterally with He scissors. The rectus fascia was dissected off the rectus muscles with both blunt and sharp dissection in the superior then inferior aspect of the incision. The rectus muscles were divided in the midline. The peritoneum was entered sharply. The peritoneal incision was extended superiorly then inferiorly with good visualization of the bladder. The bladder blade was placed , a bladder flap created with Metzenbaum scissors. The bladder blade was then replaced, a low transverse uterine incision made with a scalpel, extended laterally with digital technique of the camera operator. The 's vertex was delivered through the uterine incision. The oropharynx and nasopharynx were bulb suctioned. The was noted to have spontaneous cry. The remainder of the infant delivered with ease. Again the oropharynx and nasopharynx were bulb suctioned. The infant's cord was clamped times two and cut, handed to waiting machine lead burner, Dr. Block, who was in attendance for delivery. Cord blood was obtained. The placenta delivered intact manually. The uterus was exteriorized and cleared of all clot and debris. The uterine incision was closed with #0-Vicryl in a running locked fashion. A second imbricating layer of #0-Vicryl was used. The posterior cul-de-sac was copiously irrigated. Uterine incision was once again inspected, noted to be hemostatic. The uterus was returned to the abdominal cavity. The left and right paracolic gutter were cleared of all clot and debris. The uterine incision was once again inspected, noted to be hemostatic. The peritoneal incision was closed with 3-0 Vicryl in running fashion along with the rectus muscles in a running fashion. The subfascial compartment was inspected, any bleeding made hemostatic with the Bovie. The fascia was closed with #0-Vicryl in a running fashion. Subcutaneous space was irrigated, any bleeding made hemostatic with a Bovie. The subcutaneous space was approximated with 3-0 Vicryl Plus in a running fashion. The skin was closed with ashtyn. The uterus was expressed of a large amount of clot. She was given 0.2 Methergine to improve her uterine tone. The patient was taken out of the operating room, taken to the recovery room in stable condition. All sponge, lap, needle and instrument counts were correct. The patient tolerated the procedure well. LESLI
[2017-11-11 06:53] LABS: PLATELET COUNT, AUTOMATED 143 K/uL (150-450)
[2017-11-11] MEDS ORDERED: cefOXitin/DEX(*) 2GM/50ML PREM 50 ML IVPB ONE (07:20)
[2017-11-11] MEDS ORDERED: FAMOTIDINE(*) 20MG/50ML PREMIX 50 ML IVPB ONE (07:20)
--- NOTE | 2017-11-11 07:33 | OB/GYN Progress Note ---
OB Subjective Progress Notes Subjective Pain controlled, Tolerating diet and activity. Baby . Normal lochia. GI: NEG Nausea, NEG Vomiting, NEG Flatus Pain: Mild OB Objective Physical Exam Vital Signs Date Time Temp Pulse Resp B/P (MAP) Pulse Ox O2 Delivery O2 Flow Rate FiO2 11/11/17 06:00 92 18 105/48 (67) 98 Nasal Cannula 2.0 11/11/17 05:00 98.8 General Appearance: Alert/Awake/No Acute Distress Neurological: No Gross deficits Eyes: Normal Extraocular Movement & Vison, PERRLA Cardiovascular: Regular Rate and Rhythm Respiratory: No Respiratory Distress, Clear to Auscultation Abdomen: Fundus Firm Incision: Clean, Dry, Intact, Dressing Extremities: No Cyanosis,Clubbing or Edema, No Edema Integumentary: Skin Intact without Lesions or Rash Psychological: Alert & Oriented X3, Appropriate Mood & Affect Result Diagram: 11/11/1736 11/09/172038 Assessment and Plan Problems: (1) GBS (group B Streptococcus carrier), +RV culture, currently Status: Resolved (2) Elective induction of labor planned Status: Resolved (3) 39 weeks gestation of Status: Resolved (4) Obesity affecting in third trimester Status: Resolved (5) Active labor at term Status: Resolved (6) care following delivery Assessment & Plan: Pain controlled, Tolerating diet and activity. Baby . Normal lochia. Will start DVT prophylaxis per [facility] protocol. Advance diet and activity. DAMASO BARRIENTOS MD Nov 11, 2017 07:33
[2017-11-11] MEDS: DOCUSATE CALCIUM 240 MG CAP PO SCH ×2 (09:14→21:50)
[2017-11-11] MEDS: FAMOTIDINE 20 MG TAB PO SCH ×2 (09:14→21:50)
[2017-11-11] MEDS: SIMETHICONE 80 MG CHEW CHEW SCH ×4 (09:15→20:00)
[2017-11-11] MEDS ORDERED: INFLUENZA VIRUS VAC 0.5 ML SYR IM ONLY ONE (10:00)
[2017-11-11] MEDS ORDERED: ENOXAPARIN 40 MG/0.4ML SYR SC SCH (10:00)
[2017-11-11] MEDS: ENOXAPARIN 100 MG/ML SYR SC SCH ×2 (11:05→21:50)
--- NOTE | 2017-11-11 18:03 | Anesthesia Post Eval Note ---
Anesthesia Post Eval Note Vital Signs Date Time Temp Pulse Resp B/P (MAP) Pulse Ox O2 Delivery O2 Flow Rate FiO2 11/11/17 15:30 98.7 109 18 109/47 (67) 93 Nasal Cannula 2.0 Pt able to participate in Eval: Yes Cardiovascular Status: Satisfactory Respiratory Status: Satisfactory Pain Managment: Satisfactory PO Nausea/Vomiting: Satisfactory Temperature Management: Satisfactory Mental Status: Satisfactory, Alert, Oriented X3 Post-Op Hydration Status: Satisfactory, Tolerating PO Well, Voiding w/o Difficulty Anesthesia Type: CSE Anesthesia Tolerance: Tolerated procedure well without apparent anesthetic complications. LP site clear, no redness or edema. Denies headache or any residual paresthesia. Vital Signs Stable, Patient comfortable and condition stable. Encourage pt and RN to continue use of leg SCDs when possible. RYANN TINAJERO CRNA Nov 11, 2017 18:03
[2017-11-11] MEDS: ACETAMINOPHEN 500 MG TAB PO PRN (20:00)
[2017-11-11] MEDS: IBUPROFEN 800 MG TAB PO SCH (21:58)
[2017-11-12] MEDS: DLR(*) 1000 ML BAG 1,000 ML IV PRN (00:33)
[2017-11-12 03:22] VITALS: BP 108/50
[2017-11-12] MEDS: IBUPROFEN 800 MG TAB PO SCH ×3 (06:10→20:52)
[2017-11-12 07:55] VITALS: BP 97/48
[2017-11-12] MEDS: SIMETHICONE 80 MG CHEW CHEW SCH ×4 (09:00→20:52)
[2017-11-12] MEDS: ENOXAPARIN 100 MG/ML SYR SC SCH ×2 (09:01→20:53)
[2017-11-12] MEDS: DOCUSATE CALCIUM 240 MG CAP PO SCH ×2 (09:01→20:52)
[2017-11-12] MEDS: FAMOTIDINE 20 MG TAB PO SCH ×2 (09:01→20:52)
[2017-11-12 09:34] VITALS: BP 110/57
[2017-11-12 11:15] VITALS: BP 122/70
--- NOTE | 2017-11-12 11:40 | OB/GYN Progress Note ---
OB Subjective Progress Notes Subjective Doing well. Ambulating and tolerating regular diet. Voiding well. Pain controlled. GI: NEG Nausea : Voiding Well Pain: Mild OB Objective Physical Exam Vital Signs Date Time Temp Pulse Resp B/P (MAP) Pulse Ox O2 Delivery O2 Flow Rate FiO2 11/12/17 09:34 16 110/57 (74) 95 Room Air 11/12/17 07:55 98.1 88 11/12/17 04:10 2.0 Intake and Output 11/13/17 07:01 # Voids 1 General Appearance: Alert/Awake/No Acute Distress Neurological: No Gross deficits Eyes: Normal Extraocular Movement & Vison, PERRLA Cardiovascular: Normal Rhythm & Peripheral Pulses, Regular Rate and Rhythm Respiratory: No Respiratory Distress, Clear to Auscultation Abdomen: Soft, Non-Tender, Non-Distended, Fundus Firm Incision: Clean, Dry, Intact Extremities: No Cyanosis,Clubbing or Edema, No Edema Integumentary: Skin Intact without Lesions or Rash Psychological: Alert & Oriented X3, Appropriate Mood & Affect Result Diagram: 11/11/17 0636 11/09/172038 Assessment and Plan SOLAR PHOTOVOLTAIC ELECTRICIAN Plan: Routine Post-Op Care, Discharge Home Tomorrow Problems: (1) GBS (group B Streptococcus carrier), +RV culture, currently Status: Resolved (2) Elective induction of labor planned Status: Resolved (3) 39 weeks gestation of Status: Resolved (4) Obesity affecting in third trimester Status: Resolved (5) Active labor at term Status: Resolved (6) care following delivery JOHNATHON STEPHENS MD Nov 12, 2017 11:40
--- NOTE | 2017-11-12 12:32 | Anesthesia Post Eval Note ---
Anesthesia Post Eval Note Pt able to participate in Eval: Yes Cardiovascular Status: Satisfactory Respiratory Status: Satisfactory Pain Managment: Satisfactory PO Nausea/Vomiting: Satisfactory Temperature Management: Satisfactory Mental Status: Satisfactory, Alert, Oriented X3 Post-Op Hydration Status: Satisfactory, Tolerating PO Well, Voiding w/o Difficulty Anesthesia Type: CSE Anesthesia Tolerance: Ambulatory without S/S PDPH, no complications noted. DANIEL BYRD CRNA Nov 12, 2017 12:32
[2017-11-12 15:15] VITALS: BP 118/56
[2017-11-12] MEDS: ACETAMINOPHEN 500 MG TAB PO PRN (18:34)
[2017-11-12 20:00] VITALS: BP 124/77
[2017-11-13] VITALS: BP_SYST 119; BP_SYST 134; BP_DIAS 49; BP_DIAS 85
[2017-11-13 03:00] VITALS: BP 107/74
[2017-11-13] MEDS: IBUPROFEN 800 MG TAB PO SCH (04:44)
[2017-11-13 08:00] VITALS: BP 107/57
[2017-11-13] MEDS: SIMETHICONE 80 MG CHEW CHEW SCH (09:00)
[2017-11-13] MEDS: FAMOTIDINE 20 MG TAB PO SCH (10:14)
[2017-11-13] MEDS: DOCUSATE CALCIUM 240 MG CAP PO SCH (10:14)
[2017-11-13] MEDS: ENOXAPARIN 100 MG/ML SYR SC SCH (10:15)
--- NOTE | 2017-11-13 10:53 | OB/GYN Progress Note ---
OB Subjective Progress Notes Subjective Doing well. Pain controlled and ambulating well. No issues. GI: NEG Nausea : Voiding Well Pain: Mild OB Objective Physical Exam Vital Signs Date Time Temp Pulse Resp B/P (MAP) Pulse Ox O2 Delivery O2 Flow Rate FiO2 11/13/17 08:00 98.2 90 20 107/57 (74) 94 Room Air 11/12/17 04:10 2.0 General Appearance: Alert/Awake/No Acute Distress Neurological: No Gross deficits Eyes: Normal Extraocular Movement & Vison, PERRLA Cardiovascular: Normal Rhythm & Peripheral Pulses, Regular Rate and Rhythm Respiratory: No Respiratory Distress, Clear to Auscultation Abdomen: Soft, Non-Tender, Non-Distended, Fundus Firm Incision: Clean, Dry, Intact, Ashtyn Extremities: No Cyanosis,Clubbing or Edema, No Edema Integumentary: Skin Intact without Lesions or Rash Psychological: Alert & Oriented X3, Appropriate Mood & Affect Result Diagram: 11/11/17 0636 11/09/172038 Assessment and Plan SENIOR EDUCATION SPECIALIST Plan: Discharge Home Today Problems: (1) GBS (group B Streptococcus carrier), +RV culture, currently Status: Resolved (2) Elective induction of labor planned Status: Resolved (3) 39 weeks gestation of Status: Resolved (4) Obesity affecting in third trimester Status: Resolved (5) Active labor at term Status: Resolved (6) care following delivery Assessment & Plan: Reviewed postoperative instructions and questions answered. Remove ashtyn and steri-strip wound. Return to office in 2 weeks. JOHNATHON STEPHENS MD Nov 13, 2017 10:53
== END 2017-11-13 13:20 | disposition home or self-care (01) | DRG 765 ==
LOC: OB 18:45
PROVIDERS: ADMIT Student in an Organized Health Care Education/Training Program; ATTEND Student in an Organized Health Care Education/Training Program
PROC: 3E0P7VZ Introduction of Hormone into Female Reproductive, Via Natural or Artificial Opening (ICD-10-PCS; 2017-11-09)
PROC: 3E033VJ Introduction of Other Hormone into Peripheral Vein, Percutaneous Approach (ICD-10-PCS; 2017-11-09)
PROC: 10907ZC Drainage of Amniotic Fluid, Therapeutic from Products of Conception, Via Natural or Artificial Opening (ICD-10-PCS; 2017-11-10)
PROC: 3E0E7KZ Introduction of Other Diagnostic Substance into Products of Conception, Via Natural or Artificial Opening (ICD-10-PCS; 2017-11-10)
PROC: 4A1H74Z Monitoring of Products of Conception, Cardiac Electrical Activity, Via Natural or Artificial Opening (ICD-10-PCS; 2017-11-10)
PROC: 10D00Z1 Extraction of Products of Conception, Low, Open Approach (ICD-10-PCS; principal; 2017-11-10 20:49)
DX: O99.214 Obesity complicating childbirth (principal); Z68.43 Body mass index [BMI] 50.0-59.9, adult; O99.824 Streptococcus B carrier state complicating childbirth; E66.01 Morbid (severe) obesity due to excess calories; O76 Abnormality in fetal heart rate and rhythm complicating labor and delivery; O62.1 Secondary uterine inertia; O77.0 Labor and delivery complicated by meconium in amniotic fluid; Z37.0 Single live birth; Z3A.39 39 weeks gestation of pregnancy
CPT/HCPCS: 36415; 81001; 82040; 82247; 82310; 82374; 82435; 82565; 82570; 82947; 84075; 84132; 84155; 84156; 84295; 84450; 84460; 84520; 85025; 86850; 86900; 86901; 88307; J0694; J1650; J1885; J2210; J2270; J2370; J2405; J2540; J2590; J2765; J3010; J3490; J7030; J7120; S0020